=== PATIENT | female | born 1990 | race Caucasian/White ===

== ENCOUNTER 2019-12-21 05:46 | Day surgery (SDC) | payer MEDICAID ==
[2019-12-15 11:10] LABS: BASOPHILS % (AUTO) 0.4 % (0-1); EOSINOPHILS # (AUTO) 0.1 X10'3 (0-0.9); LYMPHOCYTES # (AUTO) 2.6 X10'3 (1.1-4.8); LYMPHOCYTES % (AUTO) 48.2 % (21-51); MEAN CORPUSCULAR HEMOGLOBIN 29.4 PG (27.0-31.0); MEAN CORPUSCULAR HGB CONC 33.5 g/dL (33.0-36.5); MEAN CORPUSCULAR VOLUME 87.9 FL (78-98); MEAN PLATELET VOLUME 9.7 FL (7.4-10.4); MONOCYTES # (AUTO) 0.3 X10'3 (0-0.9); MONOCYTES % (AUTO) 6.1 % (2-12); NEUTROPHILS # (AUTO) 2.3 X10'3 (1.8-7.7); NEUTROPHILS % (AUTO) 43.3 % (42-75); PRE OP HEMATOCRIT 40.7 % (35.0-45.0); PRE OP HEMOGLOBIN 13.6 g/dL (12.0-16.0); PRE OP PLATELET COUNT 254 X10'3 (140-440); RED BLOOD COUNT 4.63 X10'6 (4.20-5.60); RED CELL DISTRIBUTION WIDTH 12.9 % (11.5-14.5)
[2019-12-15 11:14] LABS: CLARITY,URINE CLEAR (Clear); COLOR,URINE YELLOW (Yellow); GLUCOSE, URINE NEGATIVE (Neg); KETONES,URINE NEGATIVE (Neg); LEUKOCYTE ESTERASE ,URINE NEGATIVE (Neg); NITRITES, URINE NEGATIVE (Neg); OCCULT BLOOD,URINE NEGATIVE (Neg); PH,URINE 5.5 (4.8-8.0); PROTEIN,URINE NEGATIVE (Neg); UROBILINOGEN,URINE 0.2 E.U/dL (0.2-1.0)
[2019-12-15 11:19] LABS: UA COLLECTION TYPE CLN CATCH MIDSTREAM
[2019-12-15 11:23] LABS: PRE OP PROTIME 10.5 SECONDS (9.0-12.0)
[2019-12-15 11:25] LABS: ALBUMIN 4.2 G/DL (3.4-5.0); ALKALINE PHOSPHATASE 70 IU/L (46-116); BLOOD UREA NITROGEN 14 MG/DL (7-18); BUN/CREATININE RATIO 14.7 (6.6-38.0); CALCIUM 9.3 MG/DL (8.5-10.1); CHLORIDE 105 MMOL/L (99-107); CREATININE 0.95 MG/DL (0.40-0.90); PRE OP ALT 31 U/L (30-65); PRE OP ANION GAP 7 (8-16); PRE OP AST 14 U/L (10-37); PRE OP BILIRUB, TOTAL 0.4 MG/DL (0.0-1.0); PRE OP GLUCOSE 94 MG/DL (70-104); PRE OP POTASSIUM 3.6 MMOL/L (3.4-5.1); PRE OP SODIUM 142 MMOL/L (135-145); TOTAL PROTEIN 8.5 G/DL (6.4-8.2); eGFR 70 ML/MIN
[2019-12-15 11:32] LABS: HCG SERUM QL NEGATIVE
[2019-12-21] VITALS (10 sets, daily range): BP systolic 79–116; BP diastolic 49–80
[~2019-12-21] VITALS: Ht 162.6 cm; Wt 77.4 kg
[~2019-12-21 05:46] MED LIST: DULO20CA50 PO; INDO50CA96 PO; ceFOXitin 2GM-NS 100mL ADDvant 100 ML IV ONE; famotidine 20mg tablet PO ONE; ringers solution, lacted 1,000 ML IV SCH
[2019-12-21] MEDS ORDERED: BUPIVAcaine/PF 2.5 mg/ml (0.25%) 30ml vial ONE (06:36)
[2019-12-21] MEDS ORDERED: INDOCYANINE GREEN 25 MG/10 ML VIAL IV ONE (06:53)
[2019-12-21] MEDS ORDERED: fentaNYL/PF 50MCG/1 ML 2ML syringe ONE ×2 (07:06→08:26)
[2019-12-21] MEDS ORDERED: dexamethasone sod phosphate 4mg/ml inj. ONE (07:06)
[2019-12-21] MEDS ORDERED: midazolam 2 mg/2 ml injection ONE (07:06)
[2019-12-21] MEDS ORDERED: LIDOcaine 2% (20mg/ml) 5ml vial ONE (07:07)
[2019-12-21] MEDS ORDERED: ketorolac trometh. 30mg/ml inj. ONE (07:07)
[2019-12-21] MEDS ORDERED: propofol inj 20 ML IV ONE (07:07)
[2019-12-21] MEDS ORDERED: rocuronium 10mg/ml inj IV ONE (07:08)
[2019-12-21] MEDS ORDERED: glycopyrrolate 0.2mg/ml inj ONE (07:08)
[2019-12-21] MEDS ORDERED: ondansetron/PF 4mg/2ml inj ONE (07:08)
[2019-12-21] MEDS ORDERED: neostigmine methylsulfate 1 MG/ML 10ml vial ONE (07:08)
[2019-12-21] MEDS ORDERED: sevoflurane 250ml liquid IH ONE (07:09)
[2019-12-21] MEDS ORDERED: ringers solution, lacted 1,000 ML IV SCH (07:12)
[2019-12-21] MEDS ORDERED: morphine 2 MG/ML inj. syringe IV PRN (07:15)
[2019-12-21] MEDS ORDERED: labetalol 20mg/4ml (5mg/ml) syringe IV PRN (07:15)
[2019-12-21] MEDS ORDERED: morphine 4 MG/ML inj SYRINge IV PRN (07:15)
[2019-12-21] MEDS ORDERED: ondansetron/PF 4mg/2ml inj IV PRN (07:15)
[2019-12-21] MEDS ORDERED: fentaNYL/PF 50MCG/1 ML 2ML syringe IV PRN ×2 (07:15)
[2019-12-21] MEDS ORDERED: hydrALAZINE 20mg/ml inj. IV PRN (07:15)
[2019-12-21] MEDS ORDERED: labetalol 20mg/4ml (5mg/ml) syringe IV ONE (07:42)
[2019-12-21] MEDS ORDERED: MIDAZolam 5mg/ml 2ml vial ONE (08:27)
--- NOTE | 2019-12-21 08:47 | NUR ---
Received from OR via [facility], accompanied by Anesthesiologist DR Villanueva and report given by Anesthesiolgist. PATIENT still sleepy with oral airway present, does not display symptoms of pain not yet able to answer questions, V/S WNL mask to 10L sats 98%, NEUROVASCULAR CHECKS INTACT, 20G PIV R AC, SCD ON, DEMABONDED TO LAP SIGHTS OF ABDOMEN AND WITH PERIPAD WITH SCANT DRAINAGE CDI.
[2019-12-21] MEDS ORDERED: HYDROcodone/acetaminophen 10/325mg tab PO ONE (10:10)
--- NOTE | 2019-12-21 13:02 | NUR ---
PT DISCHARGED TO VEHICLE BY WHEELCHAIR WITHOUT INCIDENT. PATIENT A&OX4, DENIES PAIN, V/S WNL, NEUROVASCULAR CHECKS INTACT, 20G PIV D/C WITH NO COMPLICATIONS OBSERVED, SCD OFF, LAP SIGHTS OF ABDOMEN REMAIN CDI. FRESH FLORY PAD GIVEN TO PATIENT AFTER DRINKING PO FLUIDS, AMBULATION AND VOIDING. I HAVE REVIEWED D/C INSTRUCTIONS WITH PATIENT AND AND THEY HAVE VERBALIZED UNDERSTANDING. PATIENT D/C HOME WITH FAMILY TO TRANSPORT AND ALL BELONGINGS RETURNED TO PT.
== END 2019-12-21 10:40 | disposition home or self-care (01) ==
LOC: PAS 05:46
PROVIDERS: ATTEND Obstetrics & Gynecology
DX: R10.2 Pelvic and perineal pain (principal); N80.3 Endometriosis of pelvic peritoneum; N80.0 Endometriosis of uterus; N94.89 Other specified conditions associated with female genital organs and menstrual cycle; N73.6 Female pelvic peritoneal adhesions (postinfective); F32.9 Major depressive disorder, single episode, unspecified; F41.9 Anxiety disorder, unspecified; E66.9 Obesity, unspecified; Z68.29 Body mass index [BMI] 29.0-29.9, adult; Z98.890 Other specified postprocedural states; Z79.899 Other long term (current) drug therapy; Z11.59 Encounter for screening for other viral diseases
CPT/HCPCS: 36415; 58662; 80053; 81003; 82948; 84703; 85025; 85610; 85730; C1758; J0694; J1100; J1885; J2001; J2250; J2405; J2704; J2710; J3010; J3490; J7120; U0003; A4618; A7000